=== PATIENT | female | born 1955 | race Caucasian/White ===

== ENCOUNTER → 2017-04-10 | Outpatient (CLI) | payer OTHER ==
[2014-02-02 10:20] VITALS: BP 109/65
--- NOTE | 2017-04-10 09:02 | KCIC ---
History: Postmenopausal estrogen deficiency, osteoporosis. Comparison: March 28, 2016. Findings: Bone Densitometry was performed with dual photon absorption of the lumbar spine and left hip. Lumbar Spine: Bone density is 0.802 g/cm2 for L1-L4. T-Score is -2.2. Z-score is -0.6. Bone mineral density of the lumbar spine demonstrates 11.6% increase from previous study. Left Hip: Bone density is 0.794 g/cm2. T-Score is -1.2. Z-score is -0.1. Bone mineral density of the left hip demonstrates 2.8% increase from previous study. IMPRESSION: Osteopenia of the lumbar spine and left hip. World Health definition of osteoporosis and osteopenia: Normal = T-Score at or above -1.0; osteopenia = T-score between -1.0 and -2.5; osteoporosis = T-score at or below -2.5 Electronically signed by: Rashad Isaacs MD (04/10/2017 8:58 AM) [email or web address]
== END | disposition home or self-care (01) ==
LOC: KCIC DEXA 07:41
PROVIDERS: ATTEND Family Medicine
DX: M81.0 Age-related osteoporosis without current pathological fracture (principal); Z78.0 Asymptomatic menopausal state
CPT/HCPCS: 77080

== ENCOUNTER → 2017-08-20 | Outpatient (CLI) | payer OTHER | END | disposition home or self-care (01) | LOC: KCIC US 15:17 | DX: E04.1 Nontoxic single thyroid nodule (principal) | CPT/HCPCS: 76536 ==

== ENCOUNTER → 2018-02-18 | Outpatient (CLI) | payer OTHER | END | disposition home or self-care (01) | LOC: KCIC MAMMO 07:51 | DX: N64.4 Mastodynia (principal) | CPT/HCPCS: 76641; 77066; G0279 ==

== ENCOUNTER → 2018-08-21 | Outpatient (CLI) | payer OTHER ==
[2014-02-02 10:20] VITALS: BP 109/65
--- NOTE | 2018-08-21 14:46 | KCIC ---
Left breast ultrasound: Reason for examination: Follow-up nodule. Comparison is made to previous examinations dated 02/18/2018 and 12/18/2016. Ultrasound examination of the left breast was performed with attention to the upper outer quadrant and left axilla. In the 2:00 position 7 cm from the nipple, there is a 6.8 mm hypoechoic lesion in parallel orientation. This has enlarged since previous examination. This may represent a fibroadenoma however considering the increase in size, further evaluation with ultrasound-guided biopsy is recommended. No other cystic or solid lesions are seen. No abnormal appearing lymph nodes are seen in the axilla. IMPRESSION: Enlarging 6.8 mm nodule at the 2:00 position 7 cm from the nipple of the left breast. Recommend ultrasound-guided biopsy. BI-RADS Category 4: Suspicious. These findings were discussed with the patient and the patient's physician office phone nurse, Kevin, was notified of these findings by myself on 08/21/2018 at 2:38 PM. "Our facility is accredited by the [employer] Mammography [employer]." This patient's information has been entered into a reminder system for the patient to be notified with the results of her examination and a target date for the next mammogram. Electronically signed by: Bessie Gonzalez MD (08/21/2018 2:41 PM) [id number]
== END | disposition home or self-care (01) ==
LOC: KCIC US 10:50
PROVIDERS: ATTEND Family Medicine
DX: N63.21 Unspecified lump in the left breast, upper outer quadrant (principal)
CPT/HCPCS: 76641

== ENCOUNTER → 2019-01-22 | Outpatient (CLI) | payer OTHER ==
[2014-02-02 10:20] VITALS: BP 109/65
--- NOTE | 2019-01-22 14:59 | KCIC ---
Thyroid ultrasound HISTORY: Neck fullness. Nodule follow-up. COMPARISON: August 20, 2017. FINDINGS: Right lobe of the thyroid measures 5.7 x 1.7 x 1.6 cm. Numerous small right thyroid nodules are seen. Dominant nodules at the lower pole measuring 9 x 7 x 5 mm. This demonstrates mixed echotexture with internal vascularity. Measures similar to slightly smaller than prior study. Thyroid isthmus measures 4 mm. Left thyroid measures 4.3 x 1.8 x 1.4 cm. Mid pole lesion of the left thyroid measures 4 x 3 x 3 mm appears hypoechoic and appears similar. A new left thyroid lower pole nodule measures 5 x 3 x 3 mm and is hypoechoic. Each of these may demonstrate small calcifications. Multiple additional tiny nodules are seen. IMPRESSION: 1. 9 mm right thyroid nodule with internal vascularity, overall similar as prior study. 2. Left mid pole hypoechoic nodule appears similar. 3. New 5 mm hypoechoic lower pole left thyroid nodule with some internal vascularity is now identified, not clearly seen on prior study. Electronically signed by: Rashad Herrera MD (01/22/2019 2:56 PM) [id number]
== END | disposition home or self-care (01) ==
LOC: KCIC US 10:03
PROVIDERS: ATTEND Family Medicine
DX: E04.2 Nontoxic multinodular goiter (principal); E07.89 Other specified disorders of thyroid
CPT/HCPCS: 76536

== ENCOUNTER → 2019-02-10 | Outpatient (CLI) | payer OTHER ==
[2014-02-02 10:20] VITALS: BP 109/65
--- NOTE | 2019-02-10 14:06 | KCIC ---
STUDY: CT chest without contrast INDICATION: Potential left upper lobe lung nodule seen on prior chest x-ray. COMPARISON: No prior cross-sectional imaging of the chest is available for comparison. TECHNIQUE: Helical CT imaging of the chest performed without the use of intravenous contrast. Sagittal and coronal reformats were obtained. FINDINGS: Vasculature: Minimal atherosclerotic calcifications of the thoracic aorta. Normal aortic caliber. Common origin of the brachiocephalic and left common carotid arteries. Suspected mild proximal left coronary artery calcifications. Mediastinum/robi: No enlarged mediastinal or hilar lymph nodes. No pericardial effusion. Normal heart size. Lungs: Bilateral apical scarring. Small nodule at the upper aspect of the right middle lobe measuring 4 mm, image 117 series 6. No discrete nodule seen on the left. No lobar infiltrate or pleural effusion. Normal caliber of the major airways which are widely patent. Neck/axilla/chest wall: The thyroid is unremarkable. No axillary adenopathy. Bones: No acute or aggressive osseous abnormality. Upper abdomen: Small calcific focus within the left renal cortex, image 182 series 3. IMPRESSION: 1. No left upper lobe pulmonary nodule, as queried. A 4 mm right middle lobe nodule is identified. No follow-up is necessary based on size though one year follow-up could be considered if there are risk factors. 2. Additional chronic, nonemergent findings as detailed above. Electronically signed by: MADY HERNANDEZ MD (02/10/2019 2:03 PM) [facility]
== END | disposition home or self-care (01) ==
LOC: KCIC CT 13:19
PROVIDERS: ATTEND Family Medicine
DX: I70.0 Atherosclerosis of aorta (principal); J98.4 Other disorders of lung; R91.1 Solitary pulmonary nodule
CPT/HCPCS: 71250

== ENCOUNTER → 2019-02-19 | Outpatient (CLI) | payer OTHER ==
[2014-02-02 10:20] VITALS: BP 109/65
--- NOTE | 2019-02-19 09:40 | KCIC ---
Bilateral digital screening mammograms with 3-D tomosynthesis: Reason for examination: Routine screening. Comparison is made to previous studies dated back to 12/12/2015. Bilateral mammograms in CC and oblique projections were obtained with 2-D imaging and 3-D tomosynthesis imaging on a Siemens Inspiration unit and reviewed on the workstation. Interpretation was made with the benefit of CAD. The skin and nipples show no abnormalities. No abnormal axillary lymph nodes are seen. The breast parenchyma shows scattered fatty and fibroglandular density. (Breast density: Category B.) There are no dominant masses, suspicious calcifications or architectural distortion. Benign calcifications are present. Biopsy clip remains present on the left. Impression: No evidence of malignancy. Recommend routine screening. BI-RAD Category 2: Benign. "Our facility is accredited by the [employer] Mammography [employer]." This patient's information has been entered into a reminder system for the patient to be notified with the results of her examination and a target date for the next mammogram. Electronically signed by: Bessie Gonzalez MD (02/19/2019 9:37 AM) [id number]
== END | disposition home or self-care (01) ==
LOC: KCIC MAMMO 07:51
PROVIDERS: ATTEND Family Medicine
DX: Z12.31 Encounter for screening mammogram for malignant neoplasm of breast (principal); N64.89 Other specified disorders of breast
CPT/HCPCS: 77063; 77067

== ENCOUNTER → 2019-04-12 | Outpatient (CLI) | payer OTHER ==
[2014-02-02 10:20] VITALS: BP 109/65
--- NOTE | 2019-04-13 00:05 | KCIC ---
EXAM: Dual energy x-ray absorptiometry (DEXA). HISTORY: Post menopausal screening. Osteoporosis. TECHNIQUE: Dual energy x-ray absorptiometry of the left hip was performed. Calculation of bone mineral density based on standard deviations above or below the expected young adult normal value (T-score) was completed. FINDINGS: The average total bone mineral density associated with the left hip is 0.740 g/cm^2, corresponding with a T-score of -1.7. Since the study of 04/10/2017, there is been a 6.8% decrease in average bone mineral density. Refer to the worksheets for full detail. IMPRESSION: 1. Osteopenia. Fracture risk is increased. Note: Definitions established by the World Health Organization: 1. Normal: T-score is -1.0 or above the expected mean for a young adult. 2. Osteopenia: T-score is between -1.0 and -2.5. 3. Osteoporosis: T-score is -2.5 or below. Electronically signed by: Romie Irby MD (04/13/2019 12:03 AM) [id number]
== END | disposition home or self-care (01) ==
LOC: KCIC DEXA 11:39
PROVIDERS: ATTEND Family Medicine
DX: Z13.820 Encounter for screening for osteoporosis (principal); M81.0 Age-related osteoporosis without current pathological fracture; M85.88 Other specified disorders of bone density and structure, other site; Z87.310 Personal history of (healed) osteoporosis fracture
CPT/HCPCS: 77080

== ENCOUNTER → 2020-02-23 | Outpatient (CLI) | payer OTHER ==
[2014-02-02 10:20] VITALS: BP 109/65
--- NOTE | 2020-02-23 17:54 | KCIC ---
Bilateral diagnostic digital mammograms with 3-D tomosynthesis: Reason for examination: Lateral left breast pain. Routine screening of the right breast. Comparison is made to previous studies dated back to 12/12/2015. Bilateral mammograms in CC and oblique projections were obtained with 2-D imaging and 3-D tomosynthesis imaging on a Siemens Inspiration unit and reviewed on the workstation. Interpretation was made with the benefit of CAD. The skin and nipples show no abnormalities. No abnormal axillary lymph nodes are seen. The breast parenchyma shows scattered fatty and fibroglandular density. (Breast density: Category B.) There continues to be some asymmetric parenchyma in the upper outer quadrant of the left breast which is stable. There are no new dominant masses, suspicious calcifications or architectural distortion. Benign calcifications are present. Impression: No evidence of malignancy. Ultrasound to follow. BI-RAD Category 0: Incomplete. Needs additional imaging evaluation. Left breast ultrasound: Ultrasound examination of the left breast and axilla was performed with attention to the area of clinical concern. There is ductal ectasia in the retroareolar position. No other cystic or solid nodules or architectural distortions are seen. No abnormal appearing lymph nodes are seen in the axilla. Impression: No suspicious abnormality seen in the left breast. Recommend routine mammographic follow-up. BI-RADS Category 2: Benign. "Our facility is accredited by the [employer] Mammography [employer]." This patient's information has been entered into a reminder system for the patient to be notified with the results of her examination and a target date for the next mammogram. Electronically signed by: Bessie Gonzalez MD (02/23/2020 5:51 PM) [email or web address]
== END | disposition home or self-care (01) ==
LOC: KCIC MAMMO 08:09
PROVIDERS: ATTEND Family Medicine
DX: R92.1 Mammographic calcification found on diagnostic imaging of breast (principal); N64.4 Mastodynia
CPT/HCPCS: 76641; 77066; G0279; 77062

== ENCOUNTER → 2021-02-23 | Outpatient (CLI) | payer OTHER ==
[2014-02-02 10:20] VITALS: BP 109/65
--- NOTE | 2021-02-23 12:19 | KCIC ---
Bilateral digital screening mammograms: Reason for examination: Routine screening. Comparison is made to previous studies dated back to 11/24/2014. Interpretation was made with the benefit of CAD. The skin and nipples show no abnormalities. No abnormal axillary lymph nodes are seen. The breast par enchyma shows scattered fibroglandular density. (Breast density: Category B.) There appears to be shirlene e increased nodularity on the left oblique view 2 cm posterior to the nipple. This may represent supe rimposed tissues but recommend further evaluation with coned compression views in CC and lateral proj ections and left breast ultrasound. There are no other new dominant masses, suspicious calcifications or architectural distortions. Some benign calcifications are present. Impression: Nodular parenchymal density is seen 2 cm posterior to the nipple in the left breast on oblique view. Recommend further evaluation with coned compression views in CC and lateral projections and left radha st ultrasound. BI-RADS Category 0: Incomplete. Needs additional imaging evaluation "Our facility is accredited by the [employer] Mammography [employer]." This patient's information has been entered into a reminder system for the patient to be notified wit h the results of her examination and a target date for the next mammogram. Electronically signed by: Bessie Gonzalez MD (02/23/2021 12:17 PM) [email or web address]
== END ==
LOC: KCIC MAMMO 11:07
PROVIDERS: ATTEND Family Medicine
DX: Z12.31 Encounter for screening mammogram for malignant neoplasm of breast (principal); N63.20 Unspecified lump in the left breast, unspecified quadrant
CPT/HCPCS: 77067

== ENCOUNTER → 2021-03-14 | Outpatient (CLI) | payer OTHER ==
[2014-02-02 10:20] VITALS: BP 109/65
--- NOTE | 2021-03-14 10:03 | KCIC ---
Procedure: Diagnostic left mammogram. INDICATION: Abnormal screening mammogram with nodularity on the left in the left view posterior to th e nipple. COMPARISON: 02/23/2021 and 02/23/2020 exams. 2-D spot compression views were obtained of the area of interest in the CC and mediolateral projectio ns. FINDINGS: Breast density: Category B. There are scattered areas of fibroglandular density. The area of interest does not appear masslike or show definite architectural distortion on additional images. There are no malignant appearing calcifications. Findings appear similar to the 3-D mammogra m from 2019. IMPRESSION: Negative diagnostic left mammogram. The area of concern appears to have been due to summa tion artifact. ASSESSMENT: BI-RADS 1. Negative. Recommendation: Routine annual 3-D mammograms. Results were given to the patient at the time of the examination.This patient's information has been entered into a reminder system for the patient to be notified with the results of her examination and a target date for the next mammogram. Electronically signed by: Leandra Mon MD (03/14/2021 10:01 AM) [email or web address]
== END ==
LOC: KCIC MAMMO 09:09
PROVIDERS: ATTEND Family Medicine
DX: R92.8 Other abnormal and inconclusive findings on diagnostic imaging of breast (principal)
CPT/HCPCS: 77065

== ENCOUNTER → 2021-11-13 | Outpatient (CLI) | payer BC ==
[2014-02-02 10:20] VITALS: BP 109/65
--- NOTE | 2021-11-13 12:18 | KCIC ---
EXAM: ULTRASOUND SOFT TISSUE NECK CLINICAL HISTORY: Reason: THYROID NODULE / Spl. Instructions: / History: COMPARISON: January 22, 2019 TECHNIQUE: Ultrasound examination of the thyroid gland was performed FINDINGS: Sonographic evaluation of the thyroid gland was performed and evaluated using ACR TI-RADS criteria. The thyroid is mildly enlarged. The right lobe of thyroid is 5.5 (both benign centers. The left lobe of thyroid measures 5.3 x 1.9 x 1.8 cm's. The isthmus is 5.4 mm in thickness. There are small hypoechoic nodules in the thyroid including a 7 x 6 x 4 mm nodule in the right and a 4 x 4 by 3 mm nodule with a small calcification on the left and a 5 x 4 x 4 mm nodule on the left. IMPRESSION: 1. Diffusely enlarged thyroid recommend correlation with TSH. 2. Small benign-appearing nodules bilaterally. ACR TI-RADS risk category: 2: No suspicious findings. Electronically signed by: Miguel Biswas III, MD (11/13/2021 12:16 PM) [facility]
--- NOTE | 2021-11-13 13:45 | KCIC ---
Bone Densitometry History: Reason: POST MENOPAUSAL / Spl. Instructions: / History: COMPARISON: 04/12/2019 Findings: Bone Densitometry was performed with dual photon absorption of the lumbar spine and proximal femurs. Lumbar Spine: Bone density is 0.739 g/cm2 for L1-L4. T-score is -2.8. Z-score is -0.8. No change from 04/12/2019. Left total hip: Bone density is 0.659 g/cm2. T-score is -2.3. Z-score is -0.9. 11 percent change from 04/12/2019. IMPRESSION: Osteoporosis in the lumbar spine and osteopenia in the left hip. Bone mineral density is unchanged in the lumbar spine and has decreased in the left hip by 11 percent compared to 04/12/2019. World Health Organization definition of osteoporosis and osteopenia for women: normal equal s T score at or above -1.0 standard deviations; osteopenia equals T score between -1.0 and -2.5 stand nelson deviations; osteoporosis equals T score at or below -2.5 standard deviations. Electronically signed by: Bertha Calderon MD (11/13/2021 1:42 PM) [id number]
== END ==
LOC: KCIC DEXA 09:05
PROVIDERS: ATTEND Family Medicine
DX: E04.9 Nontoxic goiter, unspecified (principal); E04.2 Nontoxic multinodular goiter; M81.8 Other osteoporosis without current pathological fracture; M85.88 Other specified disorders of bone density and structure, other site; Z78.0 Asymptomatic menopausal state
CPT/HCPCS: 76536; 77080